=== PATIENT | male | born 1965 | race Caucasian/White ===

== ENCOUNTER 2024-12-17 14:14 | Emergency (ER) | payer BC, MEDICARE ==
[~2024-12-17] VITALS: Ht 185.4 cm; Wt 82.0 kg
[~2024-12-17 14:14] MED LIST: ONDA4TAB6 PO
[2024-12-17 14:25] VITALS: BP 124/62; PULSE 66; TEMP 99; O2SAT 98
--- NOTE | 2024-12-17 14:37 | Physician Documentation ---
History of Present Illness ~ Chief Complaint: ALOC Stated Complaint: UTI Time Seen by MD: 14:25 Primary Medical Doctor: NONE Mode of Arrival: EMS HPI This is 59-year-old male presents to the ED from [facility]. Presents for concerns over increased agitation. Patient does not have any history of being A&O x1 at his baseline. Currently he is responding to his name and states that he "has had a long day" The facility was concerned that the patient may have a UTI. It is unclear why they were unable to get a urine sample at the facility. Patient currently has a subclinical fever at 99 F. Medication Reconciliation Allergies: Coded Allergies: No Known Allergies (Unverified , 12/17/24) Scheduled Lorazepam (Ativan), 1 TAB PO TID, (Reported) Memantine HCl (Memantine HCl), 1 TAB PO BID, (Reported) Miscellaneous Medications Donepezil Hcl (Aricept), (Reported) Olanzapine (Olanzapine), (Reported) Discontinued Medications Ondansetron Hcl (Zofran), 1 TABLET PO Q6H PRN for nausea Discontinued Reason: completed med therapy Past Medical History Past Medical History: No Pertinent History Past Surgical History: appendectomy Alcohol Use: None Lives In: Home Review of Systems All Other Systems at this time: Reviewed and Negative ROS As stated above in the HPI, otherwise all systems are reviewed and negative. Physical Exam Vital Signs: Temperature: 99.0, Source: Oral, Heart Rate: 66, Respiratory Rate: 14, BP: 124/62, Pulse Oximetry: 98, Weight: 82.000 Oxygen Flow Rate: 0 Physical Exam General: Alert, no apparent distress. Respiratory: Lungs clear, no respiratory distress. Cardiovascular: Regular rate and rhythm, no murmurs. Gastrointestinal: Soft, nontender, nondistended. Bowels sounds present. N egative CVA tenderness Neurologic: Oriented x1 Psychiatric: Normal mood and affect. Skin: Normal color, warm and dry. No edema, no ecchymosis. Progress Results/Orders Results/Orders Orders - YAAKOV MALLOY TIME CLOCK MECHANIC Culture Blood (12/17/24 14:33) Chest,Single View (12/17/24 14:40) Monitor (12/17/24 14:33) Saline Lock (12/17/24 14:33) Ct Abdomen Pelvis (12/17/24 15:55) Completed Orders - YAAKOV MALLOY TIME CLOCK MECHANIC Cbc/Diff (12/17/24 14:33) Chest,Single View (12/17/24 14:40) Procalcitonin (12/17/24 14:33) BMP (12/17/24 14:33) Lacticsepsis (12/17/24 14:33) Ua W/Microscopic, Cult If Ind (12/17/24 14:44) Ct Abdomen Pelvis (12/17/24 15:55) Ketorolac Trometh 30mg/Ml Vial (Toradol (12/17/24 16:40) Medications Received in ER Medications (Trade) Dose Ordered Sig/Marcelo Route PRN Reason Start Time Stop Time Status Last Admin Dose Admin (Toradol inj. 30mg/ml) 30 mg ONCE ONCE IM 12/17/24 16:40 12/17/24 16:41 DC 12/17/24 16:57 30 MG Vital Signs 12/17/24 12/17/24 12/17/24 14:25 14:30 16:57 Temp 99.0 Pulse 66 Resp 14 14 B/P (MAP) 124/62 Pulse Ox 98 O2 Flow Rate 0 Laboratory Tests Test 12/17/24 14:44 12/17/24 14:46 Urine Specimen Description Straight cath Urine Color Yellow Urine Clarity Clear Urine pH 6.0 Urine Specific [place] >=1.030 Urine Protein Negative Urine Glucose (UA) Negative Urine Ketones Negative Urine Occult Blood Moderate H Urine Nitrite Negative Urine Bilirubin Negative Urine Urobilinogen 1.0 Urine Leukocyte Esterase Negative Urine RBC Tntc Urine WBC 0-4 Urine Squamous Epithelial Cells Few Urine Renal Cells Moderate Urine Calcium Oxalate Crystals 1+ Urine Bacteria Few Urine Mucus Few Urine Culture Indicated Not ind Volume Urine Centrifuged 10 ml Urine Comment White Blood Count 7.2 Red Blood Count 4.33 L Hemoglobin 12.6 L Hematocrit 37.3 L Mean Corpuscular Volume 86.1 Mean Corpuscular Hemoglobin 29.1 Mean Corpuscular Hemoglobin Concent 33.9 Red Cell Distribution Width 13.5 Platelet Count 203 Mean Platelet Volume 9.9 Neutrophils (%) (Auto) 74.7 Lymphocytes (%) (Auto) 15.9 L Monocytes (%) (Auto) 6.3 Eosinophils (%) (Auto) 2.2 Basophils (%) (Auto) 0.9 Neutrophils # (Auto) 5.4 Lymphocytes # (Auto) 1.2 Monocytes # (Auto) 0.5 Eosinophils # (Auto) 0.2 Basophils # (Auto) 0.1 CBC Comment Sodium Level 140 Potassium Level 3.8 Chloride Level 106 Carbon Dioxide Level 26.9 Anion Gap 7 L Blood Urea Nitrogen 17 Creatinine 1.18 H Estimated GFR/1.73 m2 63 BUN/Creatinine Ratio 14.4 Glucose Level 106 H Lactic Acid Level 0.7 Calcium Level 9.0 Albumin 3.7 Procalcitonin < 0.05 Chemistry Comments Microbiology Date/Time Source Procedure Growth Status 12/17/24 15:14 Blood Arm Left Blood Culture - Preliminary NEGATIVE (LESS THAN 24 HOURS) Resulted Medical Decision Making Findings CT indicates: 0.8 cm right renal lower pole nonobstructing calculus with 1.8 cm left renal upper pole cyst. Patient is unremarkable for urinalysis other than positive occult blood which suspect is secondary to his kidney stone. He could have recently passed a stone. Gave him Toradol patient appears to be more comfortable when than when he arrived. Based on his history I suspect he is at his cognitive baseline.. Does not present as septic. going to discharge him back to his facility for outpatient evaluation Differential Dx:Considerations: Include: dehydration, Delirium Tr., DKA, encephalopathy, hypercalcemia, HHNC, hypoglycemia, hypernatremia, hyponatremia, hypoxia, postictal, closed head injury, C-spine injury, CVA, mass lesion, subarachnoid hemorrhage, drug overdose, encephalopathy, ETOH intoxication, medication toxicity, infection - meningitis, infection - sepsis, infection - UTI, heart failure, renal failure, respiratory failure, hyperthermia, hypothermia, other Departure Disposition: 01 HOME / SELF CARE / HOMELESS Impression: Primary Impression: Dementia Additional Impression: Kidney stone Condition: Stable Additional Instructions: Have a relatively large kidney stone in your right renal lower pole. He is can be difficult to treat and may require a nephrology consultation to effectively treat. If you develop a fever increased flank pain dysuria urinary frequency please will return to the ED. Referrals: NO PRIMARY CARE PROVIDER (PCP) Education Educated: Patient Educated regarding: diagnosis Signature Scribe Signature: f Attestation: Scribed for Yaakov Malloy Mri Technologist by Yaakov Atkinson NP . 12/17/24 23:11 YAAKOV MALLOY NP Dec 17, 2024 14:37
--- NOTE | 2024-12-17 14:53 | RADIOLOGY REPORT ---
DI CHEST,SINGLE VIEW, HISTORY: aloc COMPARISON: None None TECHNICAL DATA: 1 view of the chest was obtained. FINDINGS: Lines and tubes: None Cardiomediastinal silhouette: normal Pulmonary vasculature: normal Lung expansion: normal Lung airspace: normal Lung interstitium: normal Pleura: normal Pneumothorax: no Bones: Unremarkable Other: no IMPRESSION: No acute intrathoracic abnormality.
[2024-12-17 15:00] LABS: MEAN PLATELET VOLUME 9.9 FL (7.4-10.4); RED CELL DISTRIBUTION WIDTH 13.5 % (11.5-14.5)
[2024-12-17 15:11] LABS: CREATININE 1.18 MG/DL (0.60-1.10); TOTAL CARBON DIOXIDE 26.9 MMOL/L (24-32); eCRCL 75 ML/MIN; eGFR 63 ML/MIN
[2024-12-17 15:20] LABS: LEUKOCYTE ESTERASE ,URINE NEGATIVE (Neg); NITRITES, URINE NEGATIVE (Neg); OCCULT BLOOD,URINE MODERATE (Neg)
[2024-12-17] MEDS ORDERED: OLAN2.5T77 (15:22)
[2024-12-17] MEDS ORDERED: LORA-268 PO (15:22)
[2024-12-17] MEDS ORDERED: MEMA10TA22 PO (15:22)
[2024-12-17] MEDS ORDERED: DONE10TA44 (15:22)
[2024-12-17 15:23] LABS: UA COLLECTION TYPE STRAIGHT CATH
[2024-12-17 15:35] LABS: MUCUS STRANDS FEW /LPF (Neg); SQUAMOUS EPITHELIAL CELL,UR FEW /LPF (FEW)
[2024-12-17 15:36] LABS: RENAL CELLS, URINE MODERATE /HPF
[2024-12-17 15:38] LABS: CAL OXALATE CRYSTALS 1+ /HPF (NEGATIVE)
--- NOTE | 2024-12-17 16:55 | RADIOLOGY REPORT ---
Exam: CT CT ABDOMEN PELVIS History: kidney stones Comparison Study: None TECHNIQUE: Multidetector CT of the abdomen AND PELVIS without IV contrast. Axial, coronal and sagitta l multiplanar reformats were obtained from the axial data set by the technologist. Radiation Dose Information: CT Dose: CTDI volume is 17.82 mGy. Dose-length product is 937.84 mGy*cm FINDINGS: The lung bases are clear. Partially visualized heart is unremarkable. Subcentimeter hypodense left hepatic lobe lesion that is too small to characterize. Mild hepatomegal y. Otherwise, liver, spleen, gallbladder, pancreas and adrenal glands unremarkable. 0.8 cm right renal lower pole nonobstructing calculus. 1.8 cm left renal upper pole cyst. Mild left p elviectasis. Bilateral ureters unremarkable. Urinary bladder is mildly distended and demonstrates Mil d wall thickening. Focus of air within the Nondependent portion of the urinary bladder is most likely iatrogenic. Correlate for Possible rice catheter placement/recent instrumentation. Prostate measure s 3.3 x 4.5 x 3.9 cm. Stomach is unremarkable. Small bowel loops unremarkable. Appendix is not definitely visualized. Desce nding colon and Sigmoid diverticulosis without diverticulitis. Moderate amount of fecal material wit hin the colon. No evidence of intraperitoneal free air or free fluid. No evidence of aortic aneurysm. Mild atherosclerotic calcification of the aorta and bilateral iliacs. No significant lymphadenopathy. Moderate sized mesenteric fat and bowel containing right inguinal hernia. Tiny fat containing umbilical hernia. The soft tissues unremarkable. No destructive osseous lesions a re noted. IMPRESSION: 0.8 cm right renal lower pole nonobstructing calculus with 1.8 cm left renal upper pole cyst. Mild wall thickening of the urinary bladder which is most likely from inadequate distension. Correla tion with urinalysis is recommended to exclude cystitis. Moderate size right inguinal hernia containing segment of small bowel without evidence of obstruction or strangulation. Colonic diverticulosis without diverticulitis. Moderate amount of fecal material within the colon. Additional findings as above.
[2024-12-17 16:57] VITALS: RESP 14
[2024-12-17] MEDS: ketorolac trometh 30MG/ML vial 30 MG/ML VIAL IM ONE (16:57)
[2024-12-17] MEDS ORDERED: TAMS-55 PO (17:09)
== END 2024-12-17 17:40 | disposition home or self-care (01) ==
LOC: ER 14:14
DX: N20.0 Calculus of kidney (principal); F03.911 Unspecified dementia, unspecified severity, with agitation; Z90.49 Acquired absence of other specified parts of digestive tract
CPT/HCPCS: 36415; 71045; 74176; 80048; 81001; 83605; 84145; 85025; 87040; 96372; 99285; C1758; J1885

== ENCOUNTER 2024-12-25 19:07 | Emergency (ER) | payer MEDICARE ==
[~2024-12-25] VITALS: Ht 177.8 cm; Wt 76.1 kg
[~2024-12-25 19:07] MED LIST changes: +DONE10TA44; +LORA-268 PO; +MEMA10TA22 PO; +OLAN2.5T77; -ONDA4TAB6 PO
[2024-12-25 19:57] LABS: MEAN PLATELET VOLUME 10.1 FL (7.4-10.4); RED CELL DISTRIBUTION WIDTH 13.3 % (11.5-14.5)
[2024-12-25 20:11] LABS: CREATININE 1.17 MG/DL (0.60-1.10); TOTAL CARBON DIOXIDE 23.7 MMOL/L (24-32); eCRCL 69 ML/MIN; eGFR 64 ML/MIN
[2024-12-25] MEDS: normal saline 1000ml 1,000 ML IV ONE (20:21)
--- NOTE | 2024-12-25 21:11 | RADIOLOGY REPORT ---
EXAM: DI CHEST,SINGLE VIEW CLINICAL HISTORY: altered TECHNIQUE: Single AP view of the chest WID: COMPARISON: DI CHEST,SINGLE VIEW on DOS: 12/17/24 FINDINGS: Lines and tubes: None Chest: The heart size and pulmonary vasculature is within normal limits. No pleural effusion, pneumothorax, or consolidation. The osseous structures are grossly intact. IMPRESSION: No acute cardiopulmonary abnormality.
[2024-12-25] MEDS: diazepam inj 5 MG/ML inj. IM ONE (22:06)
[2024-12-25 22:33] LABS: LEUKOCYTE ESTERASE ,URINE NEGATIVE (Neg); NITRITES, URINE NEGATIVE (Neg); OCCULT BLOOD,URINE MODERATE (Neg)
[2024-12-25 22:38] LABS: UA COLLECTION TYPE NON-SPECIFIED
[2024-12-25 22:39] LABS: SQUAMOUS EPITHELIAL CELL,UR FEW /LPF (FEW)
[2024-12-25] MEDS: haloperidol lactate 5mg/ml inj IM ONE (22:54)
--- NOTE | 2024-12-25 23:07 | Physician Documentation ---
History of Present Illness ~ Chief Complaint: Urinary Retention Stated Complaint: KIDNEY STONES Time Seen by MD: 19:16 Primary Medical Doctor: NONE Mode of Arrival: EMS HPI 59 year old male with dementia sent by his caregiver (a family member not at the bedside) for possible urinary retention. There are no other reported complaints, however the patient has severe dementia and is largely nonverbal. No other history is obtainable. Medication Reconciliation Allergies: Coded Allergies: No Known Allergies (Unverified , 12/17/24) Scheduled Lorazepam (Ativan), 1 TAB PO TID, (Reported) Memantine HCl (Memantine HCl), 1 TAB PO BID, (Reported) Miscellaneous Medications Donepezil Hcl (Aricept), (Reported) Olanzapine (Olanzapine), (Reported) Past Medical History Past Medical History: No Pertinent History Past Surgical History: appendectomy Alcohol Use: None Lives In: Home Review of Systems All Other Systems at this time: Reviewed and Negative Physical Exam Vital Signs: RN Vital Signs have been reviewed: Yes, Temperature: 98.0, Source: Oral, Heart Rate: 61, Respiratory Rate: 16, BP: 110/68, Pulse Oximetry: 96, Weight: 76.100 Oxygen Flow Rate: 0 Physical Exam HEENT: PERRL, moist oral mucosa, EOMI Pulmonary: No respiratory distress CTAB Cardiac: RRR no m/c/r Abdomen: s/nt/nd MSK: no deformity Skin: w/d/i, no rash Neuro: nonverbal, nonfocal Progress Results/Orders Results/Orders Orders - SANFORD KAYE MD Bladder Scan (12/25/24 ) Chest,Single View (12/25/24 19:31) * Straight Cath* (12/25/24 21:45) Completed Orders - SANFORD KAYE MD Cbc/Diff (12/25/24 19:17) CMP (12/25/24 19:17) Chest,Single View (12/25/24 19:31) Normal Saline 1000ml (0.9% Sodium Chlori (12/25/24 19:35) Diazepam Inj (Valium Inj) (12/25/24 21:55) Haloperidol Lact. (Haldol) (12/25/24 22:05) Ua W/Microscopic, Cult If Ind (12/25/24 22:15) Medications Received in ER Medications (Trade) Dose Ordered Sig/Marcelo Route PRN Reason Start Time Stop Time Status Last Admin Dose Admin Sodium Chloride 1,000 ml @ 1,000 mls/hr ONCE ONCE IV 12/25/24 19:35 12/25/24 20:34 DC 12/25/24 20:21 1,000 MLS/HR (Valium inj) 5 mg ONCE ONCE IM 12/25/24 21:55 12/25/24 21:56 DC 12/25/24 22:06 5 MG Vital Signs 12/25/24 12/25/24 12/25/24 19:15 19:20 20:22 Temp 98.0 Pulse 80 61 Resp 16 16 B/P (MAP) 128/73 110/68 (82) Pulse Ox 100 96 O2 Flow Rate 0 0 Laboratory Tests Test 12/25/24 19:29 12/25/24 22:15 White Blood Count 8.1 Red Blood Count 4.55 L Hemoglobin 13.1 L Hematocrit 39.0 L Mean Corpuscular Volume 85.7 Mean Corpuscular Hemoglobin 28.8 Mean Corpuscular Hemoglobin Concent 33.6 Red Cell Distribution Width 13.3 Platelet Count 240 Mean Platelet Volume 10.1 Neutrophils (%) (Auto) 69.7 Lymphocytes (%) (Auto) 22.2 Monocytes (%) (Auto) 5.7 Eosinophils (%) (Auto) 1.5 Basophils (%) (Auto) 0.9 Neutrophils # (Auto) 5.7 Lymphocytes # (Auto) 1.8 Monocytes # (Auto) 0.5 Eosinophils # (Auto) 0.1 Basophils # (Auto) 0.1 CBC Comment Sodium Level 140 Potassium Level 3.9 Chloride Level 104 Carbon Dioxide Level 23.7 L Anion Gap 12 Blood Urea Nitrogen 16 Creatinine 1.17 H Estimated GFR/1.73 m2 64 BUN/Creatinine Ratio 13.7 Glucose Level 97 Calcium Level 9.6 Total Bilirubin 1.0 Aspartate Amino Transf (AST/SGOT) 33 Alanine Aminotransferase (ALT/SGPT) 37 Alkaline Phosphatase 122 H Total Protein 7.8 Albumin 4.2 Globulin 3.6 Albumin/Globulin Ratio 1.2 Chemistry Comments Urine Specimen Description Non-specified Urine Color Yellow Urine Clarity Clear Urine pH 7.0 Urine Specific [place] <=1.005 Urine Protein Negative Urine Glucose (UA) Negative Urine Ketones 15 H Urine Occult Blood Moderate H Urine Nitrite Negative Urine Bilirubin Negative Urine Urobilinogen 0.2 Urine Leukocyte Esterase Negative Urine RBC 10-20 Urine WBC None seen Urine Squamous Epithelial Cells Few Urine Bacteria None seen Urine Culture Indicated Not ind Volume Urine Centrifuged 10 ml Urine Comment Medical Decision Making Findings 59 year old male with dementia. Workup unremarkable including labs, UA, and bladder scan which demonstrated no evidence of UTI or urinary retention or any other metabolic problem. Will discharge with return precautions into care of caregiver. Additional Comment Ddx = urinary retention, UTI, sepsis, worsening dementia, metabolic encephalopathy Departure Disposition: HOME / SELF CARE / HOMELESS Impression: Primary Impression: Dementia Condition: Stable Discharge Instructions: Dementia Caregiver Guide Referrals: NO PRIMARY CARE PROVIDER (PCP) Education Educated: Patient Educated regarding: diagnosis, treatment, prognosis, need for follow up Signature Scribe Signature: . Attestation: . SANFORD KAYE MD Dec 25, 2024 23:07
[2024-12-26 02:38] VITALS: BP 123/80; PULSE 68; RESP 12; TEMP 98; O2SAT 96
[2024-12-28] MEDS ORDERED: TRAZ-251 PO (12:13)
[2024-12-28] MEDS ORDERED: HYDR-3964 PO (12:13)
[2024-12-28] MEDS ORDERED: DIAZ5TAB5 (12:13)
[2024-12-28] MEDS ORDERED: QUET25TA36 PO (12:13)
[2024-12-28] MEDS ORDERED: TAMSULOSIN (12:13)
[2024-12-28] MEDS ORDERED: POLY119P2 PO (14:28)
[2024-12-28] MEDS ORDERED: SENN-302 PO (14:28)
== END 2024-12-26 01:55 | disposition home or self-care (01) ==
LOC: ER 19:08
DX: F03.C0 Unspecified dementia, severe, without behavioral disturbance, psychotic disturbance, mood disturbance, and anxiety (principal); Z90.49 Acquired absence of other specified parts of digestive tract
CPT/HCPCS: 36415; 71045; 80053; 81001; 85025; 96360; 96372; 99285; C1758; J3360; J7030

== ENCOUNTER 2025-02-12 15:33 | Emergency (ER) | payer MEDICARE ==
[~2025-02-12] VITALS: Ht 182.9 cm; Wt 54.0 kg
[~2025-02-12 15:33] MED LIST changes: +DIAZ5TAB5; +HYDR-3964 PO; +OMEP40CA21 PO; +ONDA-243 PO; +POLY119P2 PO; +QUET25TA36 PO; +SENN-302 PO; +TAMSULOSIN; +TRAZ-251 PO
--- NOTE | 2025-02-12 16:53 | Physician Documentation ---
History of Present Illness ~ General Chief Complaint: See Chief Complaint Stated Complaint: HIGH HR/HIGH BP Time Seen by MD: 16:07 Primary Medical Doctor: NONE Source: family Mode of Arrival: EMS Exam Limitations: clinical condition History of Present Illness Initial Comments 59-year-old male who was brought in by EMS from [facility] due to looking pale, low heart rate and high blood pressure. apparently the med tech checked patient's blood pressure this afternoon and reported that the systolic was 280. Patient's blood pressure was normal upon EMS arrival as well as here at the ER. I contacted the med tech at [facility] who stated that the method for checking the blood pressure is an old wrist blood pressure machine which she admitted she did not know how accurate it was. Patient has no history of high blood pressure does not take any medications for high blood pressure. The bigger concern from patient's brother who arrives to the ER to add to the history is concern about over medication as well as not following the active medication list. Upon contacting [facility] the med tech did tell me that patient had not received his morning Seroquel dosage over the past several days and she was not sure why as the active medication list does show that he is supposed to receive Seroquel 75 mg TID. Brother states that since this was started that he has not been walking or eating and he is sleeping all the time. Brother is requesting that the medication be decreased especially the morning dosage. Brother believes that the reason why patient was looking pale and appeared less responsive than he usually is is because of the added Seroquel that was given this morning. Medication Reconciliation Allergies: Coded Allergies: No Known Allergies (Unverified , 12/17/24) Scheduled Lorazepam (Ativan), 1 TAB PO TID, (Reported) Memantine HCl (Memantine HCl), 1 TAB PO BID, (Reported) Omeprazole (Prilosec), 1 CAP PO DAILY Polyethylene Glycol 3350 (Miralax), 17 GM PO BID Quetiapine Fumarate (Quetiapine Fumarate), 1 TAB PO HS, (Reported) Sennosides/Docusate Sodium (Senna Plus 8.6-50 mg Tablet), 2 TAB PO TID Trazodone HCl (Trazodone HCl), 1 TAB PO HS, (Reported) Scheduled PRN Hydrocodone Bit/Acetaminophen (Hydrocodon-Acetaminophen 5-325), 1 TAB PO Q4H PRN for pain, (Reported) ONDANSETRON ODT 4mg tablet (Ondansetron Odt), 1 TAB PO Q6H PRN PRN for nausea/vomiting Miscellaneous Medications Diazepam (Diazepam), (Reported) Donepezil Hcl (Aricept), (Reported) Olanzapine (Olanzapine), (Reported) [Tamsulosin], (Reported) Past Medical History Past Medical History: No Pertinent History Past Surgical History: appendectomy Alcohol Use: None Lives In: Home Review of Systems All Other Systems at this time: Reviewed and Negative Physical Exam Physical Exam Vital Signs: Temperature: 97.3, Source: Temporal, Heart Rate: 63, Respiratory Rate: 18, BP: 129/80, Pulse Oximetry: 98, Weight: 54.000 Oxygen Flow Rate: 0 Physical Exam General Appearance: Alert, WD/WN. NAD. HEENT: NCAT, PERRL, EOMI. Neck: Supple, trachea midline. Cardiovascular: RRR. No m/r/g. Lungs: CTAB. Breathing unlabored Extremities: Normal inspection. No edema. Skin: Warm/dry, normal color Neurological: Alert, nonverbal, not able to assess orientation due to being nonverbal but makes eye contact when called his by name appearing alert to person. Psychiatric: Affect congruent with mood. Progress Results/Orders Results/Orders Vital Signs 02/12/25 02/12/25 02/12/25 02/12/25 15:53 16:03 16:53 17:27 Temp 97.3 97.3 Pulse 63 81 79 Resp 18 16 16 B/P (MAP) 129/80 113/78 (90) 113/78 Pulse Ox 98 97 97 O2 Flow Rate 0 0 Medical Decision Making Differential Diagnosis medication error, blood pressure machine error, polypharmacy, pain, stroke, myocardial infarction, dementia related Departure Time of Disposition: 16:53 Disposition: 01 HOME / SELF CARE / HOMELESS Impression: Primary Impression: Medication adverse effect Qualified Codes: T50.905A - Adverse effect of unspecified drugs, medicaments and biological substances, initial encounter Condition: Stable Discharge Instructions: General Discharge Instructions Additional Instructions: PLEASE MAKE SURE THAT THE SUPERVISING NURSE OF THE FACILITY IS AWARE THAT THIS PATIENT DID NOT GET HIS MORNING MEDICATIONS WERE SUPPOSED TO BE GIVEN OVER THE PAST WEEK THIS IS FAIRLY CONCERNING THE [facility] HAS HAD THREE DAYS OF MEDICATION ERRORS FOR THE AM DOSAGE WITH MEDICATIONS NOT BEING DISPENSED PLEASE MAKE SURE THE CHANGES I HAVE MADE BELOW ARE CHANGED IN BOTH THE ACTIVE MEDICATION LIST AND PLEASE MAKE SURE THEY ARE ALSO CHANGED IN THE ECP IT APPEARS THAT YOUR MEDICATION LIST AND THE ECP ARE NOT ALWAYS REFLECTIVE OF EACH OTHER AND BOTH SAY DIFFERENT THINGS: 1. CHANGE SEROQUEL DOSAGE FROM 75MG TID TO 25MG Q 8AM, 50MG Q 2PM, 75MG Q 8PM DUE TO SIGNS OF OVERMEDICATION 2. PLEASE MAKE A NOTE ON YOUR ACTIVE MEDICATION LIST THAT DIAZEPAM AND NORCO ARE CURRENTLY ON HOLD RIGHT NOW YOUR ACTIVE MEDICATION LIST IS NOT ACCURATE IT SHOWS THEM PRN MEDICATIONS RE: YOUR WRIST BLOOD PRESSURE MACHINE: 3. PLEASE DISCUSS GETTING A NEW MACHINE YOUR WRIST BLOOD PRESSURE MACHINE IS EXTREMELY INACCURATE THE SYSTOLIC READING WAS 280 WHICH PROMPTED THE PATIENT TO BE TAKEN TO THE EMERGENCY ROOM BY AMBULANCE AND HIS SYSTOLIC BLOOD PRESSURE WAS ACTUALLY 120. Referrals: NO PRIMARY CARE PROVIDER (PCP) Education Educated: Family (brother) Educated regarding: diagnosis, treatment, need for follow up Signature Scribe Signature: x Attestation: AMMON Aleman Feb 12, 2025 16:52
[2025-02-12 17:27] VITALS: BP 113/78; PULSE 79; RESP 16; TEMP 97.3; O2SAT 97
== END 2025-02-12 17:20 ==
LOC: ER 15:33
DX: R40.4 Transient alteration of awareness (principal); T43.595A Adverse effect of other antipsychotics and neuroleptics, initial encounter; Z90.49 Acquired absence of other specified parts of digestive tract; Z79.899 Other long term (current) drug therapy; Y92.89 Other specified places as the place of occurrence of the external cause
CPT/HCPCS: 99284